=== PATIENT | female | born 1995 | race Caucasian/White ===

== ENCOUNTER 2021-10-02 06:35 | Inpatient (IN) | payer OTHER ==
[~2021-10-02] VITALS: Ht 160 cm; Wt 52.0 kg
[~2021-10-02 06:35] MED LIST: COLACE100 MG PO; IBUPROFEN800 MG PO; MIRALAX17 GM PO; NORCO 5-325 TA1 EACH PO; PREDNISONE20 MG PO
--- NOTE | 2021-10-03 11:33 | CONS ---
[facility] [address], [place] [address] Signed DATE OF CONSULTATION: 10/02/2021 REQUESTING PHYSICIAN: Dr. Zuniga. HISTORY: The patient is a 26-year-old female, 3, para 1, AB 2 female, who was seen in the emergency room this morning with abdominal pain. The patient states she awoke from sleep with back pain. She now reports the pain is ongoing and can be in the abdomen, back, or the anterior left leg down to the knee. She does have some vaginal discharge. Her last period was about two weeks ago. She reports last intercourse was about four days ago. She uses no control. She has a long history of irregular periods. She denies any fever. She does report cough. MEDICATIONS: None. ALLERGIES: To azithromycin with an unknown reaction. HABITS: Positive tobacco, half pack per day. Negative for alcohol use. 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 She denies any IV drug use. She smokes or eats meth. PAST SURGICAL HISTORY: about four years ago. ILLNESSES: Negative. SOCIAL HISTORY: She is homeless and does not report any specific violence, but does not necessarily feel safe. ROS: Otherwise negative. PHYSICAL EXAMINATION: GENERAL: She is a well-developed, well-nourished female, in no acute distress. She was very sleepy and difficult to arouse, but able to answer questions when pressed. VITAL SIGNS: Blood pressure was 128/63, pulse was 107, respiratory rate 22. Electronically Signed By: JANET CROOK MD 10/03/21 1133 PATIENT NAME: TITUS DUMONT CONSULTATION DATE OF : [birth year] REPORT #: [id number] PHYSICIAN: JANET CROOK MD PCP: AGUSTIN HURTADO MD REPORT IS CONFIDENTIAL AND NOT TO BE RELEASED WITHOUT AUTHORIZATION [facility] [address], [place] [address] Signed ABDOMEN: Active bowel sounds. It was soft. It was nontender. PELVIC: The external genitalia were normal. The vagina had a moderate yellow discharge. Cervix was not friable, but tender with motion. The uterus was normal in size, but moderately tender. Adnexa had no masses, but were both bilaterally tender. LABORATORY DATA: Ultrasound was negative for any masses or free fluid. CT was negative for any pelvic pathology, but positive for multifocal pneumonia. Labs, H and H were 8.7 and 30.5, white count was 19.3, segs 75, bands 3, lymphocytes 16, platelets 497. BMP was normal. UCG is negative. IMPRESSION: Pelvic inflammatory disease. She is a poor candidate for outpatient treatment. She would be unable to consistently take her medications given her current living situation, and I feel that she should be admitted at least temporarily for treatment. Pneumonia. The patient also has pneumonia requiring treatment. also has pneumonia which requires treatment. Drug use. She has a history of drug use with meth including today. Anemia. Social. She is homeless. PLAN: Admit for treatment of her PID with IV Rocephin, oral doxycycline, IV Flagyl. GC/CT/Trich pending Antibiotics per hospitalist for her pneumonia Social work consult Janet Crook MD PJW/MODL /[id number] Electronically Signed By: JANET CROOK MD 10/03/21 1133 PATIENT NAME: TITUS DUMONT CONSULTATION DATE OF : [birth year] REPORT #: [id number] PHYSICIAN: JANET CROOK MD PCP: AGUSTIN HURTADO MD REPORT IS CONFIDENTIAL AND NOT TO BE RELEASED WITHOUT AUTHORIZATION [facility] [address] [place] [id number] Signed Copies: ~ Electronically Signed By: JANET CROOK MD 10/03/21 1133 PATIENT NAME: TITUS DUMONT CONSULTATION DATE OF : [birth year] REPORT #: [id number] PHYSICIAN: JANET CROOK MD PCP: AGUSTIN HURTADO MD REPORT IS CONFIDENTIAL AND NOT TO BE RELEASED WITHOUT AUTHORIZATION
[2021-10-04] MEDS ORDERED: METRONIDAZOLE500 MG PO (23:28)
[2021-10-04] MEDS ORDERED: AVIDOXY100 MG PO (23:28)
[2021-10-04] MEDS ORDERED: CEFPODOXIME PR200 MG PO (23:29)
[2021-10-05] MEDS ORDERED: VENTOLIN HFA18 GM INH (09:41)
== END 2021-10-04 23:30 | disposition left against medical advice (07) | DRG 179 ==
LOC: ED 06:35 → MS 12:35
PROVIDERS: ADMIT Internal Medicine; ATTEND Internal Medicine
DX: J15.6 Pneumonia due to other Gram-negative bacteria (principal); J45.909 Unspecified asthma, uncomplicated; Z20.822 Contact with and (suspected) exposure to COVID-19; N73.9 Female pelvic inflammatory disease, unspecified; D50.9 Iron deficiency anemia, unspecified; F15.90 Other stimulant use, unspecified, uncomplicated; Z59.00 Homelessness unspecified; Z88.1 Allergy status to other antibiotic agents; Z91.018 Allergy to other foods
CPT/HCPCS: 36415; 71045; 74177; 76830; 76856; 80048; 80202; 81001; 82728; 83550; 83605; 83735; 84703; 85025; 85060; 86850; 86900; 86901; 87210; 87491; 87536; A9270; C9803; J0696; J1170; J1650; J2060; J2405; J3370; J3475; J7030; J7060; J7121; Q9967; U0003